=== PATIENT | male | born 2000 | race Caucasian/White ===

== ENCOUNTER → 2021-06-20 | Outpatient (CLI) | payer BC, SELFPAY | END | disposition home or self-care (01) | LOC: LABSPEC 11:10 | PROVIDERS: PCP Pediatrics; Referring Provider Ophthalmology; Visit Provider Ophthalmology | DX: H10.012 Acute follicular conjunctivitis, left eye (principal) | CPT/HCPCS: 87070; 87075; 87110; 87140; 87205 ==